=== PATIENT | female | born 1975 | race Caucasian/White ===

== ENCOUNTER 2022-08-06 16:34 | Outpatient (CLI) | payer BC, SELFPAY ==
--- NOTE | 2022-08-06 16:45 | CRLHL7_ITS ---
For Patients: As a result of the Century Cures Act, medical imaging exams and procedure reports are released immediately into your electronic medical record. You may view this report before your referring provider. If you have questions, please contact your health care provider. BILATERAL SCREENING MAMMOGRAM WITH COMPUTER-AIDED DETECTION AND TOMOSYNTHESIS TECHNIQUE: CC and MLO views were obtained. These mammographic images have been obtained using full-field digital technique. These mammographic images were interpreted with the benefit of computer-aided detection. Breast Tomosynthesis was used in this interpretation. COMPARISON FILM: 07/18/2021, 05/26/2020, 11/18/2018. FINDINGS: The breasts are extremely dense, which lowers the sensitivity of mammography IMPRESSION: There is no radiographic evidence for malignancy. ASSESSMENT: BI-RADS Category 2: Benign RECOMMENDATION: Routine screening mammogram in 1 year. A lay language report of this examination will be provided to the patient. Amor Flood M.D. Diagnostic Radiologist [email or web address] Transcribed: 4:03 pm DW/Dictated by: Amor Flood MD @ 08/07/2022 8:20:00 AM (Electronically Signed)
== END 2022-08-06 16:35 | disposition home or self-care (01) ==
PROVIDERS: Visit Provider Physician Assistant
DX: Z12.31 Encounter for screening mammogram for malignant neoplasm of breast (principal); R92.2 Inconclusive mammogram
CPT/HCPCS: 77063; 77067

== ENCOUNTER 2022-10-22 08:03 | Day surgery (SDC) | payer BC, SELFPAY ==
[2022-10-22] VITALS (13 sets, daily range): BP systolic 115–152; BP diastolic 69–92; PULSE 73–100; RESP 12–18; TEMP 36.4–36.8; O2SAT 94–99; BMI 27.0
[2022-10-22 08:32] LABS: HCG Qualitative* Negative (Negative)
[2022-10-22] MEDS: SCOPOLAMINE 1 MG/3 DAY PATCH 1 PATCH TRANSDERMA (09:13)
[2022-10-22] MEDS: CEFAZOLIN 2 GM INJ IVP (10:05)
[2022-10-22] MEDS: BUPIVACAINE 0.25% 30 ML 20 ML INJECTION (10:25)
--- NOTE | 2022-10-22 10:51 | P.GSOP_ITS ---
Operative Note Date of procedure: 10/22/22 Pre-op diagnosis: 1. Chronic cholecystitis. 2. Cholelithiasis. Post-op diagnosis: Same Type of Procedure: 1. Laparoscopic cholecystectomy. Indications: 46-year-old female was seen in clinic with episodes of right upper quadrant pain the past 3-4 months. The painful episodes happened randomly and were not necessarily related to food intake. She did recall 1 episode of pain that woke her up at night while she was in [place]. The pain was described as discomfort. Patient occasionally had loose stools. When patient was seen by her primary care doctor, she was found to have mildly elevated AST and ALT of 43 and 85. Her lipase and bilirubin were normal. Her gallbladder ultrasound showed contracted gallbladder with gallstones. The gallbladder wall was 2.6 mm in the common bile duct was 3.5 mm. On clinical exam patient had no tenderness to palpation in the right upper quadrant and negative Keyes sign. Patient was thought to have chronic cholecystitis but her symptoms were atypical for gallbladder disease. She was then referred for HIDA scan. Patient's HIDA scan showed nonfilling of the gallbladder for the first 3 hours. This was concerning for chronic inflammation. Given patient's clinical history and her imaging findings, I recommended to consider laparoscopic cholecystectomy. Patient agreed to proceed. The procedure was discussed in detail. The risks associated the procedure including infection, bleeding, injury to the intra-abdominal organs, and injury to the common bile duct were all discussed with the patient. Procedure Description: After discussing the risks and benefits of the procedure, the patient signed informed consent.? The operative site was marked and the patient was brought to the operating room and placed on the operating table in supine position.? Care was taken to pad the patient's pressure points.?? The patient was then intubated by anesthesia.?? The operative site was then prepped and draped in the usual sterile fashion.? A time-out was then performed. A 5-mm laparoscopy port was placed in the left upper quadrant guided by a 5-mm laparoscope placed into a translucent trochar.~ Passage through the layers of the abdominal wall was visualized with the laparoscope.~ A pneumoperitoneum was established. A 0-degree 5-mm laparoscope was advanced into the abdomen. The abdomen was briefly surveyed, and no adhesions were noted. A 10-mm port were placed infraumbilically and two more 5 mm ports were placed on the right under direct visualization by laparoscope. The camera was then changed to 10 mm 30- degree scope and placed into the abdomen through the 10 mm port. The left upper quadrant port entrance was examined and no injury to intra-abdominal organs was identified. The gallbladder was identified, the fundus grasped and retracted cephalad. She duodenum was adherent to the anterior surface of the gallbladder with dense adhesions. These adhesions were carefully taken down with cautery with care taken not to injure the duodenum. The duodenum was then retracted medially. The fundus of the gallbladder was then retracted cephalad. The infundibulum was grasped and retracted laterally, exposing the peritoneum overlying the triangle of Calot. This was then divided and exposed in a blunt fashion and with hook cautery. Common bile duct was not identified but care was taken not to injure it. The cystic duct was clearly identified and bluntly dissected circumferentially. Cystic artery was identified and tissues around it were dissected off. The cystic artery and the cystic duct were clearly going into the gallbladder. The cystic duct was then doubly ligated with surgical clips on the patient's side and singly clipped on the gallbladder side and divided. The cystic artery was then similarly ligated with clips and divided as well. The gallbladder was dissected from the liver bed in retrograde fashion using hookcautery. The peritoneum overlying the gallbladder was dense and more difficult to divide but there was no evidence of acute inflammation. The gallbladder was placed into an Endo-Catch bag and removed through the infraumbilical incision. Surgical site was examined for bleeding. No bleeding was seen in the surgical field. The fascia of the infraumbilical incision was then closed with 0-0 vicryl using Harjinder Ron needle under direct visualization. Pneumoperitoneum was completely reduced after viewing removal of the trocars under direct vision. The skin was then closed with 4-0 monocryl and steristrips were applied. Instrument, sponge, and needle counts were correct at closure and at the conclusion of the case. The patient was transferred to PACU in stable condition. Findings: No evidence of acute inflammation. Cholelithiasis. Anesthesia: GETA Surgeon: Radha Conteh MD Estimated blood loss (mL): 5 Specimen: Gallbladder Condition: stable Disposition: PACU
--- NOTE | 2022-10-22 11:13 | W.ANESCHARGE ---
Anesthesia Charges Start Date/Time Anesthesia Start Date: 10/22/22 Anesthesia Start Time: 09:52 Stop Date/Time Anesthesia Stop Date: 10/22/22 Anesthesia Stop Time: 11:07
[2022-10-22] MEDS: LACTATED RINGERS 1000 ML 1,000 ML 100 ML IV (11:28)
== END 2022-10-22 12:52 | disposition home or self-care (01) ==
PROVIDERS: Nurse Anesthetist, Certified Registered; PCP Family Medicine; Visit Provider Surgery
PROC: 0FT44ZZ Resection of Gallbladder, Percutaneous Endoscopic Approach (ICD-10-PCS; CPT 47562; principal; 2022-10-22 09:30)
DX: K80.10 Calculus of gallbladder with chronic cholecystitis without obstruction (principal)
CPT/HCPCS: 47562; 00790; 84703; 88304; A9270; J0690; J1100; J1170; J1885; J2250; J2405; J2704; J3010; J3490; J7120